=== PATIENT | female | born 1965 | race Caucasian/White ===

== ENCOUNTER 2023-07-30 12:35 | Emergency (ER) | payer OTHER, SELFPAY ==
[2023-07-30 12:37] VITALS: BP 149/70; PULSE 76; RESP 19; TEMP 36; O2SAT 99
[2023-07-30 13:03] VITALS: BMI 35.4
--- NOTE | 2023-07-30 13:08 | ED.RN ---
[facility], LEFT MESSAGE ABOUT PT INFO VOICEMAIL REQUESTED. WAITING CALL BACK TO INITIATE A POSSIBLE TRANSFER.
--- NOTE | 2023-07-30 13:18 | EX.ED.UPPERE ---
HPI History of Present Illness HPI Narrative: Dog bite left hand and left forearm Chief Complaint: Upper Extremity Injury Informant: patient Occured/Mechanism Mechanism/Context: Yes injury and Yes blunt trauma Comment: Playing with her great Vin. Great Vin bit her left hand and left forearm. She is right-hand dominant. Last tetanus shot Onset/Context/Timing Onset: Yesterday Context: Sudden Onset Timing: Continuous Quality of Pain: Dull and Aching Location: Forearm and left little finger Current Severity: Mild Maximum Severity: Severe Worsened by: Passive extension of the left little finger and palpation of the left forea Associated Symptoms Associated Symptoms: Positive for Loss of Funtion Narrative Narrative: Patient is a 58-year-old woman. Patient states she was playing with her great Vin yesterday. Regrading scratched and bit her forearm and hand respectively. She was sent from urgent care because of air in the subcutaneous tissue. Disc accompany patient. Had radiology open disc. Patient has subcutaneous air in the proximity of the middle phalanx of the left little finger. There is no obvious subcu air noted in the forearm. Patient denies fever, chills night sweats. She is on no immunosuppressive meds. She has no allergies to antibiotics. She is allergic to [employer]. Unfortunately, patient was not told not to eat prior to coming. She stopped she had half a bottle of water, 2 crackers, and additional food 30 minutes prior to arrival. Tetanus Immunization: <5 years Prior similar symptoms: No Recent Illness/Hospitalization: No [facility] Medical History Anxiety Asthma Depression GERD (gastroesophageal reflux disease) Sleep apnea Allergy/AdvReac Type Severity Reaction Status Date / Time phenobarbital Allergy Intermediate Rash Verified 07/30/23 12:38 Social History Smoking Status: Never smoker ROS ROS ED Constitutional Constitutional ED: Denies chills, fever(s), subjective or sweats Cardiovascular Cardiovascular: Denies chest pain or palpitations Respiratory/Chest Respiratory/Chest: Denies cough or dyspnea Neurologic Neurologic: Denies paresthesias or weakness Psychiatric Psychiatric: Denies anxiety Hematologic/Lymphatic Hematologic/Lymphatic: Denies easy bleeding or easy bruising EXAM Physical Exam Const Vital Signs: 07/30/23 12:37 Temperature 96.8 F L Temperature Source Temporal Pulse Rate 76 Respiratory Rate 19 H Blood Pressure 149/70 H Blood Pressure Mean 96 Pulse Ox 99 Oxygen Delivery Method Room Air Positive well nourished, well developed and obese General Appearance ED: well developed and NAD Nutritional Appearance: obese HEENT Reports moist mucous membranes normocephalic and atraumatic Eyes PERRL and EOMs intact bilaterally Neck full ROM and supple Chest Wall inspection of chest normal and palpation of chest normal Resp normal respiratory effort and clear to auscultation bilaterally Cardio regular rate, regular rhythm, S1 normal heart sound, S2 normal heart sound and no murmurs GI non-tender, non-distended and no masses Back/Spine no CVA tenderness Extremity normal to inspection and full ROM Neuro oriented x3, CN's II-XII intact bilaterally and moves all extremities Psych mental status grossly normal Skin Skin Narrative: Multiple wounds volar surface of left forearm. Able to express purulent material from the most distal wound. There is no crepitus subcutaneous air. Patient's left little finger is flexed. Passive extension causes marked discomfort. There is pain outpatient over the flexor tendon left little finger in zone 3 of the palm. This raises concern for pyogenic flexor tenosynovitis. Lesions: no lesions Rashes: no rashes MDM MDM MDM Narrative Medical decision making narrative: Patient with infected forearm wound due to dog scratch and infected left little finger with pyogenic flexor tenosynovitis due to bite. Patient received 3.0 g of Unasyn and 15 mg/kg vancomycin. Spoke with Dr. Escobedo. He recommended that she be seen by a hand surgeon for appropriate treatment and more importantly follow-up. Patient was made NPO. Baseline blood work was obtained. Will obtain chest x-ray and EKG after talking with specialist if needed. In my opinion patient could have a [place] block her axillary nerve block per anesthesia. Spoke with Dr. GERTRUDIS Arriaza. He informed Dr. Johnny Turner of patient. Patient to be ER to ER. Spoke with the nurse at the call center. Hep-Lock was kept in place. Patient was allowed to transport herself to facilitate transfer. Culture was obtained from the left little finger after discussion with Dr. GERTRUDIS Arriaza. Radiography Chest X-Ray - ED: - (X-rays were obtained of the hand and forearm. 3 views of the hand and 2 of the forearm. There is no foreign body noted. There is subcutaneous air around the middle phalanx predominantly volar side. The forearm reveals no abnormality.) Management Discussion w/another healthcare provider: Other ([place] was asked to contact the ID since she has ID insurance for emergent transfer.) Discharge Plan Triage Chief Complaint: Upper Extremity Injury Other Complaint: Laceration ED Provider: Sridhar Long Dx/Rx/DC Orders Clinical Impression: Suppurative tenosynovitis of flexor tendon of left hand, Cellulitis with lymphangitis [facility] Provider: [facility] Referrals: [facility] [Primary Care Provider] - Activity Restrictions/Additional Instructions: Go directly to [facility], [facility]. Let the triage nurse know that you were transferred from [place] and are to see the hand surgeon. Do not eat or drink anything. Go straight to the ER Disposition Disposition: Acute Care Hospital Discharge Location: [facility]
[2023-07-30 13:35] LABS: Anion Gap 2 (5-15); BUN 9 mg/dL (7-18); BUN/Creat Ratio 13.2 RATIO (10-20); Chloride 103 mmol/L (98-107); Creatinine, Serum 0.68 mg/dL (0.55-1.02); EST Glomerular Filtration Rate 93 mL/min (>60); Est Glom Filt Rate - Afr Amer 113 mL/min (>60); Glucose 113 mg/dL (74-106); Sodium Level 138 mmol/L (136-145)
[2023-07-30 13:41] LABS: Absolute Lymphocyte Count 0.98 X10^3/uL (0.83-4.51); Absolute Neutrophil Count 8.1 X10^3/uL (2.0-7.7); Basophil# 0.02 X10^3/uL; Basophil% 0.2 % (0-1); Eosinophil# 0.05 X10^3/uL; Eosinophils% 0.5 % (0-5); Hematocrit 39.3 % (37-47); Hemoglobin 12.3 g/dL (12.0-15.0); Lymphocyte # 0.98 X10^3/ul (0.83-4.51); Lymphocyte % 10.1 % (19-41); Mean Corp Hgb Conc 31.3 g/dL (32-36); Mean Corpuscular Hgb 28.9 pg (27.0-32.0); Mean Corpuscular Volume 92.5 fL (81-99); Mean Platelet Vol. 9.7 fl (6.2-12.0); Monocyte% 5.2 % (0-10); NRBC Flagged by Analyzer 0 % (0-5); Neutrophil # 8.08 X10^3/uL (2.7-7.7); Neutrophil % 83.6 % (47-70); Platelet Count 238 K/mm3 (150-450); Red Blood Count 4.25 M/mm3 (4.2-5.4); White Blood Count 9.7 K/mm3 (4.4-11.0)
[2023-07-30] MEDS: Ampicillin/Sulbactam 3 GM in 0.9% Normal Saline (100mL MB+) 100 ML IV (13:49)
[2023-07-30] MEDS: Vancomycin HCl 1,250 MG in 0.9% Normal Saline (250mL Bag) 250 ML 167 MG IV (14:32)
[2023-07-30 14:36] VITALS: BP 133/73; PULSE 72; RESP 14; O2SAT 98
[2023-07-30 16:00] VITALS: BP 145/89; PULSE 82; RESP 16; O2SAT 97
[2023-07-30 16:45] VITALS: BP 154/72; PULSE 76; RESP 16; TEMP 37.1; O2SAT 97
== END 2023-07-30 16:48 | disposition short-term general hospital (02) ==
PROVIDERS: Emergency Provider Emergency Medicine; Visit Provider Emergency Medicine
DX: L03.114 Cellulitis of left upper limb (principal); S61.452A Open bite of left hand, initial encounter; S51.852A Open bite of left forearm, initial encounter; M65.849 Other synovitis and tenosynovitis, unspecified hand; W54.0XXA Bitten by dog, initial encounter; Y93.K9 Activity, other involving animal care; J45.909 Unspecified asthma, uncomplicated
CPT/HCPCS: 80048; 85025; 87070; 87077; 87205; 96365; 96366; 96367; 99284; J7040; J7050; A4216; J0295

== ENCOUNTER → 2023-08-14 | Outpatient (CLI) | payer OTHER, SELFPAY ==
--- NOTE | 2023-08-14 14:20 | BI_ITS ---
MAMMOGRAPHY - BILATERAL SCREENING 3-D TOMOSYNTHESIS REASON FOR EXAM: Female, 58 years old. SCREENING PERTINENT HISTORY: No significant family history. TECHNIQUE: 2-D mammograms and 3-D Tomosynthesis of the breast (s) were performed. CAD was performed. COMPARISON: 08/23/2022 FINDINGS: The breast composition is composed of scattered fibroglandular density. Scattered benign calcifications are seen. No dense spiculated masses or suspicious microcalcifications are identified. No architectural distortion is identified. There is no skin thickening or retraction. There has been no significant change since the prior study. BI/SCRN MAMM (CAD)W/KEYA BILAT IMPRESSION: No mammographic signs of malignancy. Routine yearly mammograms recommended. ASSESSMENT CATEGORY: BIRADS Category 1: Negative. A letter regarding these results will be sent to the patient by the facility within 30 days. FOLLOW UP RECOMMENDATION: Yearly follow up mammogram recommended. (A) Approximately 10% of breast cancers are not detected by mammography. A normal mammogram should not delay biopsy of a clinically suspicious abnormality. Electronically Signed: Yandel Salvador MD at 9:37 EDT ,
== END | disposition home or self-care (01) ==
LOC: OPBI 14:17
DX: Z12.31 Encounter for screening mammogram for malignant neoplasm of breast (principal)
CPT/HCPCS: 77063; 77067

== ENCOUNTER 2024-01-25 19:46 | Emergency (ER) | payer OTHER, SELFPAY ==
[2024-01-25 19:47] VITALS: BP 160/74; PULSE 70; RESP 18; TEMP 37.1; O2SAT 96; BMI 34.9
--- NOTE | 2024-01-25 22:29 | EDS_ITS ---
HPI History of Present Illness Chief Complaint: Other, Pain/Inj Informant: patient Narrative Narrative: 58-year-old female presenting to the emergency room with left shoulder pain. Patient states that earlier today she went to her doctor and [facility] and received the second shingles vaccine in the left shoulder. Patient states that on the way home she was feeling throbbing in the area and this is progressed now to severe pain. No rash no hives no fever no hand symptoms she states that she was expecting mild to moderate pain but that this is severe. No chest pain shortness of breath. Patient states she was unable to nap this afternoon for the pain is worried that she is not can be able to sleep tonight. [facility] Medical History Asthma Sleep apnea Anxiety Depression GERD (gastroesophageal reflux disease) Allergy/AdvReac Type Severity Reaction Status Date / Time phenobarbital Allergy Intermediate Rash Verified 01/25/24 19:52 Social History Smoking Status: Never smoker ROS ROS ED Constitutional Constitutional ED: Denies chills, fever(s) or weight loss Eyes Eyes: Denies change in vision or diplopia ENT ENT ED: Denies ear pain, rhinorrhea or sore throat Cardiovascular Cardiovascular: Denies chest pain, orthopnea, palpitations or racing heartbeat Respiratory/Chest Respiratory/Chest: Denies cough, dyspnea or orthopnea Gastrointestinal Gastrointestinal: Denies abdominal pain, diarrhea, nausea or vomiting Genitourinary Genitourinary ED: Denies dysuria, hematuria or urinary frequency Musculoskeletal Musculoskeletal: Reports other Details: See history of present illness ; Denies arthralgias or myalgias Integumentary Denies abscess or rash Neurologic Neurologic: Denies headache(s) or weakness Psychiatric Psychiatric: Denies anxiety, depression, suicidal ideation or suicidal thoughts Endocrine Endocrinology: Denies polydipsia, polyphagia or polyuria Allergic/Immunologic Allergic/Immunologic ED: Denies mouth swelling, tongue swelling or urticaria EXAM Physical Exam Const Vital Signs: 01/25/24 19:47 01/25/24 21:16 Temperature 98.7 F Temperature Source Oral Pulse Rate 70 Respiratory Rate 18 Respiratory Effort Normal Non-Labored Respiratory Pattern Normal Blood Pressure 160/74 H Blood Pressure Mean 102 Pulse Ox 96 Oxygen Delivery Method Room Air Positive well nourished and well developed General Appearance ED: well developed and NAD HEENT Reports normocephalic, head/scalp atraumatic and moist mucous membranes Eyes PERRL and EOMs intact bilaterally Neck no lymphadenopathy, supple and no JVD Resp normal respiratory effort and clear to auscultation bilaterally Cardio regular rate, regular rhythm and no murmurs GI normal to inspection, nondistended, normoactive bowel sounds and non-tender Palpation: soft Back/Spine no CVA tenderness and normal ROM Extremity Extremity Narrative: Left shoulder is diffusely tender to palpation. I do not appreciate any erythema focal swelling. Distally there is equal pulses radial and ulnar. Sensation appears intact of the hand. No subcutaneous emphysema. General Extremety ED: Negative for edema General Extremity: Negative for edema Neuro oriented x3 and CN's II-XII intact bilaterally Sensorium / Orientation: alert Motor Exam: strength 5/5 throughout Psych mental status grossly normal Mood & Affect: tearful; Negative for depressed Skin no rashes or lesions noted and no wounds Skin Narrative: Healed linear lacerations of the bilateral forearms MDM MDM MDM Narrative Medical decision making narrative: Differential diagnosis includes allergic reaction postinjection site pain SIRVA muscle spasm neurovascular injury bursitis Clinically I do not appreciate any focal swelling erythema skin sloughing neurovascular injury. There is diffuse tenderness to palpation of the shoulder region including trapezius clavicle bony prominences. Difficult to say what role anxiety is playing in this as I would not expect the clavicle to be tender after an injection. I can give her a dose of Toradol for pain. Would recommend ice to the area. Continue to monitor for any changes. Return if worsening follow-up with primary care History & Record Review Discussion w/independent historian: Patient Discharge Plan Triage Chief Complaint: Other, Pain/Inj ED Provider: Blu Simpson Dx/Rx/DC Orders Clinical Impression: Pain at injection site, Acute pain of left shoulder Instructions: Post Inject Inflammation [facility] [Primary Care Provider] - 3-5 Days if not improving Print Language: Palestinian Disposition Disposition: Home, Self Care
[2024-01-25] MEDS: Ketorolac 60 MG/2 ML Vial IM (22:30)
[2024-01-25 22:32] VITALS: BP 148/89; PULSE 70; RESP 18; TEMP 37.1; O2SAT 96
== END 2024-01-25 22:43 | disposition home or self-care (01) ==
PROVIDERS: Emergency Provider Emergency Medicine; Visit Provider Emergency Medicine
DX: M25.512 Pain in left shoulder (principal)
CPT/HCPCS: 96372; 99282

== ENCOUNTER 2024-11-14 07:54 | Emergency (ER) | payer OTHER, SELFPAY ==
[2024-11-14 07:54] VITALS: BP 169/83; PULSE 53; RESP 18; TEMP 36.8; O2SAT 100; BMI 34.3
--- NOTE | 2024-11-14 08:11 | EX.ED.DYSGE1 ---
HPI History of Present Illness Chief Complaint: Flank Pain Informant: patient Onset/Context/Timing Onset: Yesterday Context: Gradual Onset Timing: Continuous Quality: Sharp, cramping Location: Right lower flank and right lower abdomen Worsened by: Laying flat Relieved by: Nothing Narrative Narrative: Patient presents with right lower flank and lower abdominal pain that began yesterday. Patient states it is gradually gotten worse. Patient states it has been constant. Patient describes her pain as sharp and cramping. Patient states her pain is worse with laying flat. Patient noted nothing has helped her pain. Patient states her pain is localized to the right flank and right lower abdomen. Patient admits to some nausea and vomiting. Patient denies any dysuria, hematuria, or frequency. Patient denies any history of renal calculi. [facility] Medical History (Updated 11/14/24 @ 11:[address] Jeanmarie Bhatt DO) Asthma Sleep apnea Anxiety Depression GERD (gastroesophageal reflux disease) Allergy/AdvReac Type Severity Reaction Status Date / Time phenobarbital Allergy Intermediate Rash Verified 11/14/24 07:54 Surgical History Hx of repair of rotator cuff Hx of section Hx of hand surgery Social History Smoking Status: Never smoker ROS ROS ED Constitutional Constitutional ED: Reports chills, subjective and sweats; Denies fever(s) Eyes Eyes: Denies blurry vision or change in vision ENT ENT ED: Denies rhinorrhea or sore throat Cardiovascular Cardiovascular: Denies chest pain or palpitations Respiratory/Chest Respiratory/Chest: Denies cough or dyspnea Gastrointestinal Gastrointestinal: Reports abdominal pain, nausea and vomiting; Denies diarrhea or melena Genitourinary Genitourinary ED: Denies dysuria, hematuria or urinary frequency Musculoskeletal Musculoskeletal: Reports back pain; Denies neck pain Integumentary Reports rash; Denies abscess Neurologic Neurologic: Denies headache(s) or weakness Allergic/Immunologic Allergic/Immunologic ED: Denies mouth swelling or urticaria EXAM Physical Exam Const Vital Signs: 11/14/24 07:54 11/14/24 10:07 Temperature 98.2 F Temperature Source Oral Pulse Rate 53 L 55 L Respiratory Rate 18 18 Blood Pressure 169/83 H 164/69 H Blood Pressure Mean 111 100 Pulse Ox 100 93 Oxygen Delivery Method Room Air Room Air Positive well nourished and well developed Constitutional Narrative: BMI is 34.4. General Appearance ED: well developed and NAD HEENT Reports moist mucous membranes Neck supple and no JVD Resp normal respiratory effort and clear to auscultation bilaterally Cardio regular rhythm Rate: bradycardia GI non-distended Auscultation: normoactive bowel sounds Palpation: soft and tender RLQ; Negative for guarding or rebound tenderness present Back/Spine General Back: CVA tenderness right Extremity normal to inspection General Extremety ED: Negative for edema or tenderness General Extremity: Negative for edema Neuro oriented x3, CN's II-XII intact bilaterally and no sensory deficits noted Sensorium / Orientation: alert Motor Exam: strength 5/5 throughout Psych mental status grossly normal MDM MDM MDM Narrative Medical decision making narrative: Differential diagnosis includes ureteral calculus, pyelonephritis, appendicitis, ovarian cyst, urinary tract infection, diverticulitis, bowel obstruction, perforation, and musculoskeletal back pain. CT scan of the abdomen and pelvis will be obtained to assess for ureteral calculus, appendicitis, ovarian cyst, and pyelonephritis. CBC will be obtained to assess for leukocytosis and anemia. Basic metabolic profile will be obtained to assess for electrolyte abnormality and renal function. Urinalysis will be obtained to assess for urinary tract infection and hematuria. History & Record Review Additional record(s) reviewed:: Prior ED visit and Prior labs Lab Data Attestation: I reviewed the patient's lab results. Lab results narrative: CBC was reviewed and was within normal limits. Basic metabolic profile was reviewed and was within normal limits. Urinalysis was reviewed. There is no evidence of urinary tract infection or hematuria. Labs: Laboratory Results - last 24 hr 11/14/24 11/14/24 08:37 09:54 WBC 5.4 RBC 4.62 Hgb 13.6 Hct 41.9 MCV 90.7 MCH 29.4 MCHC 32.5 RDW Std Deviation 43.4 RDW Coeff of Vani 13.1 Plt Count 244 MPV 9.4 Immature Gran % (Auto) 0.400 Neut % (Auto) 74.6 H Lymph % (Auto) 18.2 L [place] % (Auto) 4.4 Eos % (Auto) 1.7 Baso % (Auto) 0.7 Absolute Neuts (auto) 4.1 Absolute Lymphs (auto) 0.99 Nucleated RBC % 0 Sodium 139 Potassium 4.6 Chloride 102 Carbon Dioxide 25.9 Anion Gap 12 BUN 13 Creatinine 0.68 L Estim Creat Clear Calc 91.40 Est GFR (MDRD) Non-Af 99 BUN/Creatinine Ratio 18.4 Glucose 138 H Calcium 9.1 Urine Color Yellow Urine Clarity Clear Urine pH 7.0 Ur Specific [place] 1.010 Urine Protein 15 H Urine Glucose (UA) Normal Urine Ketones Negative Urine Occult Blood 10 H Urine Nitrite Negative Urine Bilirubin Negative Urine Urobilinogen Normal Ur Leukocyte Esterase Negative Urine RBC 0-5 SEEN Urine WBC 0-5 SEEN Ur Squamous Epith Cells 0-5 SEEN Urine Bacteria 0 SEEN Urine Mucus 0 SEEN Radiography Diagnostic Testing: Clinical Impression(s) from Imaging Studies Abdomen/Pelvis CT 11/14/24 08:27 IMPRESSION: NORMAL NONCONTRAST CT OF THE ABDOMEN AND PELVIS. Reading Location: [facility] CT scan of the abdomen and pelvis was obtained. There is no evidence of appendicitis. There is no ureteral calculus noted. There is no free air. There is no free fluid noted. There is no acute abnormality noted. This was interpreted by the radiologist and was also independently reviewed by myself. Treatment and Re-Evaluation :: Patient was given an injection of morphine and Zofran. Patient was given IV fluids. Patient was advised of her findings. Patient was instructed to follow-up with her primary care physician in 5 to 7 days for further evaluation. Patient was instructed to return if worse in any way. Patient understood and was agreeable with the plan. All questions were answered. Discharge Plan Triage Chief Complaint: Flank Pain ED Provider: Jaenmarie Bhatt Dx/Rx/DC Orders Clinical Impression: Acute right flank pain, Abdominal pain Instructions: ED Abdominal Pain Unkn Cause Fem, ED Flank Pain with Uncertain Cause [facility] [Primary Care Provider] - 5-7 Days Print Language: Welsh Disposition Disposition: Home, Self Care
--- NOTE | 2024-11-14 08:27 | CT_ITS ---
PROCEDURE: ABDOMEN/PELVIS WITHOUT CONT 11/14/2024 REASON FOR EXAM: Right flank pain. Radiating to the lower abdomen. TECHNIQUE: ABDOMEN/PELVIS WITHOUT CONT Noncontrast technique limits evaluation of the abdominal and pelvic viscera. Coronal and Sagittal reconstruction series were provided. One or more dose reduction techniques were used (e.g., Automated exposure control, adjustment of the mA and/or kV according to patient size, use of iterative reconstruction technique). RADIATION DOSE SUMMARY: CTDlvol: 14.04 mGy DLP: 676.92 mGycm COMPARISON: None FINDINGS: Lung bases: Minimal increased markings at the lung bases suggestive of atelectasis. No coronary artery calcification is seen. Mild pericardial thickening. Liver: Normal size. No obvious mass. Gallbladder: Unremarkable Spleen: Normal size. Pancreas: Normal size. No surrounding inflammation. Adrenals: Unremarkable Kidneys: No urolithiasis. No hydronephrosis. Bladder: Unremarkable Reproductive Organs: Unremarkable Bowel: Unremarkable Appendix: Unremarkable Lymph nodes: Unremarkable Vasculature: Mild diffuse atherosclerotic calcifications are noted. Peritoneum / Retroperitoneum: Unremarkable Bones: Unremarkable CT/Abdomen/Pelvis without Cont IMPRESSION: NORMAL NONCONTRAST CT OF THE ABDOMEN AND PELVIS. Reading Location: [facility]
[2024-11-14] MEDS: 0.9% Normal Saline (1000mL) 1,000 ML 1000 ML IV (08:42)
[2024-11-14 08:43] LABS: Hematocrit 41.9 % (37-47); Hemoglobin 13.6 g/dL (12.0-15.0); Immature Granulocytes Count 0.020 X10^3/uL (0.0-0.0); Mean Corp Hgb Conc 32.5 g/dL (32-36); Mean Corpuscular Volume 90.7 fL (81-99); Mean Platelet Vol. 9.4 fl (6.2-12.0); NRBC Flagged by Analyzer 0 % (0-5); Platelet Count 244 K/mm3 (150-450); RBC Distribution Width CV 13.1 % (11.6-14.6); RBC Distribution Width SD 43.4 fl (35.1-43.9); Red Blood Count 4.62 M/mm3 (4.2-5.4); White Blood Count 5.4 K/mm3 (4.4-11.0)
[2024-11-14 08:59] LABS: Anion Gap 12 (5-15); BUN 13 mg/dL (4-19); BUN/Creat Ratio 18.4 RATIO (10-20); Calcium,Total 9.1 mg/dL (7.6-11.0); Carbon Dioxide 25.9 mmol/L (21.0-32.0); Chloride 102 mmol/L (98-108); Estimated Creatinine Clearance 91.40 ml/min (50-250); Glucose 138 mg/dL (70-99); Potassium 4.6 mmol/L (3.3-5.1)
--- NOTE | 2024-11-14 08:59 | ED.RN ---
pt notes she hurt her back this past sunday moving, but since has had pain to the right side with urinary frequency and has had vomiting.
[2024-11-14 10:00] LABS: Mucous, Urine 0 SEEN /hpf (<or=2+)
[2024-11-14 10:03] LABS: Color, Urine Yellow (Yellow); Glucose, Dipstick Normal (Normal); Ketone-Dipstick Negative (Negative); Leukocyte Esterase-Dipstick Negative /ul (Negative); Nitrite-Dipstick Negative (Negative); Occult Blood-Urine 10 /ul (Negative); Protein-Dipstick 15 mg/dl (Negative); Specific Gravity, Urine 1.010 (1.002-1.030); Urine Bilirubin Dipstick Negative (Negative)
[2024-11-14 10:07] VITALS: BP 164/69; PULSE 55; RESP 18; O2SAT 93
[2024-11-14 10:13] LABS: Red Blood Cells-Urine 0-5 SEEN /hpf (0-5); Squamous Epithelial Cells - UA 0-5 SEEN /hpf (5-10)
[2024-11-14 11:45] VITALS: BP 136/82; PULSE 78; RESP 16; TEMP 36.5; O2SAT 96
== END 2024-11-14 11:45 | disposition home or self-care (01) ==
PROVIDERS: Emergency Provider Emergency Medicine; Visit Provider Emergency Medicine
DX: R10.9 Unspecified abdominal pain (principal); R11.2 Nausea with vomiting, unspecified; K21.9 Gastro-esophageal reflux disease without esophagitis; J45.909 Unspecified asthma, uncomplicated
CPT/HCPCS: 74176; 80048; 81001; 85025; 96361; 96374; 96375; 99283; A4216; J2405